=== PATIENT | male | born 1985 | race Hispanic/Latino ===

== ENCOUNTER → 2024-03-13 10:35 | Outpatient (CLI) | payer OTHER, SELFPAY ==
--- NOTE | 2024-03-13 10:38 | DI.MRI.S_ITS ---
PROCEDURE: MR SHOULDER RT WO CON INDICATIONS: Pain in right shoulder TECHNIQUE: Noncontrast oblique coronal T2 fast spin echo with fat saturation, oblique sagittal T1 spin echo and T2 fast spin echo with fat saturation, axial T1 spin echo and T2 fast spin echo with fat saturation through the shoulder. COMPARISON: [facility] Outside Film, CR, XR SHOULDER 2+ VIEWS RIGHT, 11/05/2023, 11:56. FINDINGS: Image quality: Excellent. Rotator cuff: There is likely full-thickness tearing of the supraspinatus tendon at the anterior insertion measuring 7 mm in anterior-posterior dimension without significant retraction of tendon fibers. Low-grade partial intrasubstance tearing is seen at the posterior supraspinatus and anterior infraspinatus tendon. Teres minor tendon is intact. Focal low-grade partial intrasubstance tearing of the subscapularis tendon at the distal insertion. There is no significant rotator cuff muscle atrophy. Bones and bursae: No acute trabecular bone injury or fracture. No focal glenohumeral cartilage defect is seen at. Beva-ao-wliijklj degenerative changes are seen in the acromioclavicular joint with mild subchondral edema. Small amount of fluid in the subacromial/subdeltoid bursa likely communicates with the glenohumeral joint fluid. Capsule and soft tissues: No displaced labral tear is seen. Proximal biceps long head tendon demonstrates mild tendinosis. Partial effacement of the fat signal in the rotator interval. Anterior band of the inferior glenohumeral ligament is borderline in thickness. IMPRESSION: 1. Focal full-thickness tearing of the supraspinatus tendon at the anterior insertion measuring 7 mm in anterior-posterior dimension without significant tendon retraction. There is low-grade partial intrasubstance tearing of the adjacent posterior supraspinatus tendon and anterior infraspinatus tendon. 2. Small focal low-grade partial intrasubstance tearing at the superior insertion of the subscapularis tendon. 3. Mild proximal biceps long head tendinosis. 4. No displaced labral tear. 5. Mild to moderate acromioclavicular joint osteoarthrosis. Mild edema in the distal clavicle is likely related to degenerative subchondral edema although an osseous contusion or chronic repetitive stress could produce similar findings. 6. Small subacromial/subdeltoid bursal effusion communicates with the glenohumeral joint space. Approved by: Robe Amos M.D. on 03/13/2024 at 12:30
== END ==
PROVIDERS: PCP Nurse Practitioner Family; Referring Provider Nurse Practitioner Family; Visit Provider Nurse Practitioner Family
DX: M75.121 Complete rotator cuff tear or rupture of right shoulder, not specified as traumatic (principal); M19.011 Primary osteoarthritis, right shoulder; M25.411 Effusion, right shoulder; M25.511 Pain in right shoulder
CPT/HCPCS: 73221

== ENCOUNTER 2024-05-22 11:01 | Day surgery (SDC) | payer OTHER, SELFPAY ==
[2024-05-20 14:58] VITALS: BMI 39.1
[2024-05-22] VITALS (8 sets, daily range): BP systolic 112–137; BP diastolic 75–89; PULSE 73–86; RESP 13–24; TEMP 36.1–36.9; O2SAT 92–97; BMI 39.1
[2024-05-22] MEDS: LACTATED RINGERS 1,000 ML 42 ML IV ×2 (11:23→13:57)
[2024-05-22] MEDS: ACETAMINOPHEN 325 MG TABLET 975 MG PO (11:24)
--- NOTE | 2024-05-22 12:34 | PM.PREOP ---
Pre-operative Note Interval Note History & Physical reviewed/Exam performed by Physician: Yes Changes to H&P: No
[2024-05-22] MEDS: CEFAZOLIN 2 GM/100 ML PREMIX 100 ML IV (13:00)
[2024-05-22] MEDS: BUPIVACAINE 0.5% (PF) 30 ML, EPINEPHrine 0.15 MG INJ (13:10)
--- NOTE | 2024-05-22 13:19 | SUR.OPER ---
Lateral on padded OR bed with craig bag positioner, head on pillow, gel axillary roll in place, bottom leg bent with gel pad under knee to foot, upper leg straight and supported with pillows. Operative arm secured in shoulder positioning suspension device. non-operative arm secured on padded arm board. Safety belt at hip, tape over blanket securing lower legs.
[2024-05-22] MEDS: LIDOCAINE 1% 20 ML INJ (14:11)
--- NOTE | 2024-05-22 14:18 | P.OP_ITS ---
Operative Date/Time/Diagnoses Date of procedure: 05/22/24 Time of procedure: 13:00 Pre-op diagnosis: Right supraspinatus tear Post-op diagnosis: same Procedure & Clinicians Procedure: Right arthroscopic subacromial decompression with rotator cuff repair as well as debridement CPT code 95542, 70230, 37432 Same procedure as scheduled: Yes Indications: Full-thickness tear involving the right supraspinatus Surgeon: Naseem Gomez Appraisal Technician: Petra Guevara Anesthesia Type: General and Peripheral nerve block Operative Notes Findings: 1 cm tear involving the right supraspinatus with minimal retraction. Partial tearing to the infraspinatus both articular and bursal but relatively mild. No sign of any significant arthritic changes to the glenohumeral joint no sign of any proximal biceps pathology. Significant synovitis and bursitis in the subacromial and subdeltoid space. Estimated Blood Loss (mL): 5 Procedure in detail: On date of service, Patient was met in the holding area. The operative site was signed and witnessed by the OR staff. The surgeries once again discussed with the patient and any remaining questions they had were answered fully. Patient was taken back to the operating theater and placed on the operating table in a supine position. Great care was taken to ensure that all bony prominences were properly padded. Patient was then placed into the beach chair position. The head and neck were properly positioned and secured. A timeout was performed verifying patient's name, procedure, and the operative site. The right upper extremity was then prepped and draped in the normal sterile fashion. Previously, the bony anatomy and portal sites were marked out as well as injected with Marcaine with epinephrine. An 11 blade was used to make an incision in the posterior aspect of the shoulder. The camera was placed, and a diagnostic shoulder scope was performed. Findings listed above. Next under dir ect visualization, a anterior portal was made. Shaver was brought in and extensive debridement of the degenerative changes to the labrum was performed. Shaver was also used to debride the synovitis in the glenohumeral joint as well as the mild partial tearing to the articular surface of the supraspinatus and infraspinatus as well as subscapularis. Next the camera was placed into the subacromial space. A lateral portal was obtained under direct visualization. A combination of the shaver and vapor wand, a debridement of the inflamed tissue as well as inflamed bursa was performed. The lateral gutter was also cleaned out. There was a significant amount of bursitis and synovitis in both the subacromial and subdeltoid space. After this was all cleaned out, This gave us good visualization of the bursal aspect of the rotator cuff as well as the acromial arch. There was an obvious impingement lesion in the acromial arch. Next we turned our attention to the subacromial decompression. Next, a bur was then used to do a subacromial decompression. This allowed us to convert the acromion to a type I acromial. This also allowed us to shave down the bony lesion in the acromial space. The rasp was placed into the lateral portal as well as the anterior portal in order to do a complete subacromial decompression. We then turned our attention to the rotator cuff tear. Patient had a full- thickness tear involving the right supraspinatus with minimal retraction. Due to the acute nature of the tear the cuff was still very mobile and had not scarred in at all. We could very easily pull it back to the rotator cuff footprint. Using the bur, the rotator cuff footprint was decorticated down to bleeding bone. Next, 2 medial anchors were placed. One anteriorly 1 posteriorly. Each anchor had 2 strands of fiber tape for a speed bridge repair. The sutures from the posterior anchor were passed through the posterior aspect of the infraspinatus. Then the sutures from the anterior anchor was passed through the anterior aspect of the supraspinatus. When pulling on the sutures we were able to reduce the supraspinatus to their respective footprints. Next, a punch was used to make a hole in the bone for the 2 medial anchors. This was done also anteriorly and posteriorly. A single suture from the anterior medial anchor and a single suture from the posterior medial anchor were placed into the anterior lateral anchor allowing us to tenodesis the rotator cuff across the rotator cuff footprint for the supraspinatus. This was then repeated with the remaining suture both anteriorly and posteriorly. And these 2 sutures were placed into the posterior medial anchor and tenodesis posteriorly providing a crisscross pattern providing a secure repair of the supraspinatus. Back After the repair there was good coverage of the entire humeral head and a very secure repair of the rotator cuff. Shoulder was taken through range of motion and there was no sign of any other tearing. No sign of any impingement lesions. Camera and cannulas were removed. Portal sites were closed. Patient's shoulder was cleaned, dried, and dressed. Patient was extubated and taken to [facility] PACU in stable condition. The assistance of a skilled ophthalmology surgical technician was necessary during this procedure for positioning of the arm as well as helping with positioning of the camera and our instruments during repair of the rotator cuff. The case would have been much longer and more difficult had an nutrition assistant not been available. The services of the ophthalmology surgical technician were necessary for this case. Complications: none Post-operative Condition: stable Disposition: PACU Plan for aftercare: Patient will follow our postoperative protocol for rotator cuff repair.
[2024-05-22] MEDS: OXYCODONE IR 5 MG TABLET PO (14:58)
--- NOTE | 2024-05-22 15:28 | PM.HP.1 ---
History of Present Illness History of Present Illness Date Patient Seen: 05/22/24 Time Patient Seen: 15:28 Chief complaint: Right shoulder Narrative: Patient with a previous history of a right middle finger distal amputation. Since that procedure he is had a recurrent regrowth of remaining nail that has continued to cause him pain and discomfort. Due to this fact, patient is interested in having the nailbed ablated to keep any remaining nail from growing. [facility] Medical History Headache Surgical History Hx of LAS Social History household members: friend(s) Smoking Status: Never smoker alcohol intake: never Meds Home Medications and Allergies Home Medications Medication Instructions Recorded Confirmed Type hydroxyzine pamoate 25 mg capsule 25 mg PO TID-QID PRN spasms #60 05/22/24 Rx (Vistaril) caps oxycodone-acetaminophen 5 mg-325 2 tab PO Q4-6H PRN pain #60 tabs 05/22/24 Rx mg tablet (Percocet) Allergies Allergy/AdvReac Type Severity Reaction Status Date / Time No Known Drug Allergies Allergy Verified 05/22/24 11:08 Exam Vital Signs (past 8 hours): - 05/22/24 11:39 05/22/24 14:28 05/22/24 14:33 Temperature 98.4 F 97 F L Pulse Rate 82 79 73 Respiratory Rate 18 24 22 Blood Pressure 115/79 137/78 123/78 Pulse Oximetry 97 92 95 Oxygen Delivery Method Room Air Simple Mask Simple Mask Oxygen Flow Rate 05/22/24 14:38 05/22/24 14:45 05/22/24 14:50 Temperature Pulse Rate 74 86 81 Respiratory Rate 17 18 13 Blood Pressure 132/83 121/89 127/76 Pulse Oximetry 95 92 93 Oxygen Delivery Method Simple Mask Nasal Cannula Room Air Oxygen Flow Rate 2 05/22/24 14:58 05/22/24 15:11 Temperature Pulse Rate 81 79 Respiratory Rate 15 16 Blood Pressure 131/76 112/75 Pulse Oximetry 94 95 Oxygen Delivery Method Room Air Room Air Oxygen Flow Rate Oxygen Delivery Method Room Air Oxygen Flow Rate 2 Narrative Exam Narrative: On physical exam no swelling or deformities. Patient has signs of a amputation to the distal tip of his right middle finger. On palpation 1 can feel a small piece of remaining nail growing through the ulnar border of the finger. Not causing any infectious process. But is tender to palpation. Assessment & Plan Assessment & Plan narrative: Patient with a persistent nail deformity after an amputation to the right middle finger that is causing him pain and dysfunction. Due to this fact, patient is interested in having the nailbed ablated. The risk, benefits, alternatives, possible complications, operative course, and postop outcomes were discussed. Complications including but not limiting to bleeding, infection, fracture, nerve injury, continued pain postoperatively or instability postoperatively were discussed in detail. Medical complications including but not limited to deep venous thrombosis event, anesthesia complications with excessive bleeding, vascular events or cardiac events and other possible complications were discussed in detail. Need for postoperative rehabilitation and anticipated hospital stay and clinical course were discussed in detail. Patient acknowledges understanding and elects to proceed with surgery. Time-Based Coding :: [TOTAL MINUTES] spent with patient and on the chart (including review of chart, obtaining history, exam, reviewing outside data, placing orders, documenting exam and treatment plan, and counseling patient) on [DATE].
--- NOTE | 2024-05-22 15:30 | PM.PREOP ---
Pre-operative Note Interval Note History & Physical reviewed/Exam performed by Physician: Yes Changes to H&P: No
--- NOTE | 2024-05-22 15:31 | P.HP_ITS ---
History of Present Illness History of Present Illness Chief complaint: Right shoulder ON LICENSE OF [facility] Medical History Headache Surgical History Hx of LASIK Social History household members: friend(s) Smoking Status: Never smoker alcohol intake: never Meds Home Medications and Allergies Home Medications Medication Instructions Recorded Confirmed Type hydroxyzine pamoate 25 mg capsule 25 mg PO TID-QID PRN spasms #60 05/22/24 Rx (Vistaril) caps oxycodone-acetaminophen 5 mg-325 2 tab PO Q4-6H PRN pain #60 tabs 05/22/24 Rx mg tablet (Percocet) Allergies Allergy/AdvReac Type Severity Reaction Status Date / Time No Known Drug Allergies Allergy Verified 05/22/24 11:08 Exam Vital Signs (past 8 hours): - 05/22/24 11:39 05/22/24 14:28 05/22/24 14:33 Temperature 98.4 F 97 F L Pulse Rate 82 79 73 Respiratory Rate 18 24 22 Blood Pressure 115/79 137/78 123/78 Pulse Oximetry 97 92 95 Oxygen Delivery Method Room Air Simple Mask Simple Mask Oxygen Flow Rate 05/22/24 14:38 05/22/24 14:45 05/22/24 14:50 Temperature Pulse Rate 74 86 81 Respiratory Rate 17 18 13 Blood Pressure 132/83 121/89 127/76 Pulse Oximetry 95 92 93 Oxygen Delivery Method Simple Mask Nasal Cannula Room Air Oxygen Flow Rate 2 05/22/24 14:58 05/22/24 15:11 Temperature Pulse Rate 81 79 Respiratory Rate 15 16 Blood Pressure 131/76 112/75 Pulse Oximetry 94 95 Oxygen Delivery Method Room Air Room Air Oxygen Flow Rate Oxygen Delivery Method Room Air Oxygen Flow Rate 2 Assessment & Plan Time-Based Coding :: [TOTAL MINUTES] spent with patient and on the chart (including review of chart, obtaining history, exam, reviewing outside data, placing orders, documenting exam and treatment plan, and counseling patient) on [DATE].
== END 2024-05-22 15:28 | disposition home or self-care (01) ==
PROVIDERS: PCP Nurse Practitioner Family; Referring Provider Nurse Practitioner Family; Visit Provider Orthopaedic Surgery
PROC: (CPT 29805; principal; 2024-05-22 13:00)
DX: S46.811A Strain of other muscles, fascia and tendons at shoulder and upper arm level, right arm, initial encounter (principal); M75.41 Impingement syndrome of right shoulder
CPT/HCPCS: 29827; 29826; 29823; C9356; J0171; J0690; J1100; J1885; J2250; J2405; J2704; J3010

== ENCOUNTER 2025-06-17 06:01 | Day surgery (SDC) | payer OTHER, SELFPAY ==
[2025-06-11 14:10] VITALS: BMI 42.3
[2025-06-17] VITALS (9 sets, daily range): BP systolic 130–140; BP diastolic 62–99; PULSE 84–99; RESP 14–18; TEMP 36.1–36.4; O2SAT 94–99; BMI 43.4
--- NOTE | 2025-06-17 07:20 | PM.PREOP ---
Pre-operative Note COVID-19 COVID-19 status: Not tested Interval Note History & Physical reviewed/Exam performed by Physician: Yes Changes to H&P: No
[2025-06-17] MEDS: LACTATED RINGERS 1,000 ML 84 ML IV ×2 (07:28→09:59)
--- NOTE | 2025-06-17 08:34 | SUR.OPER ---
Beach chair with Ciara/Clif shoulder positioner. Lower body on padded OR bed. Head in foam padded head cradle, secured with straps. Non-operative arm secured <90 degrees abduction. Pillow under knees. Safety belt at thigh. Cloth tape over blanket over lower legs.
[2025-06-17] MEDS: SODIUM CHLORIDE IRRIG SOLUTION 3,000 ML, EPINEPHrine 3 MG IRR (09:16)
--- NOTE | 2025-06-17 10:29 | P.OP_ITS ---
Operative Date/Time/Diagnoses Date of procedure: 06/17/25 Time of procedure: 08:36 Pre-op diagnosis: right shoulder biceps tendinitis and subacromial impingement Post-op diagnosis: same Procedure & Clinicians Procedure: right shoulder arthroscopy with open subpectoral biceps tenodesis and subacromial debridement Same procedure(s) as scheduled: Yes Surgeon: Alma Rosa Goncalves Assisted?: Yes Senior Software Quality Engineer: Janette Carrillo Anesthesia Type: General Operative Notes Findings: SLAP tear and subacromial bursitis Closure Type: primary Applied: none Estimated Blood Loss (mL): 10 Blood products transfused: none Procedure in detail: Preoperative diagnosis: 1. R Biceps tendonitis 3.? R subacromial bursitis and loose anchor subcoracoid recess Postoperative diagnosis: 1. R shoulder subacromial bursitis 2.? Biceps tendinitis and Type II SLAP Procedure performed: 1. R shoulder arthroscopy with subacromial debridement 2. Open subpectoral biceps tenodesis Implants: 1. Arthrex proximal biceps button. The patient was met in the preoperative hold area the right upper extremity was signed as the correct extremity. The patient was taken back to the operating room. The patient was placed in the beach chair position. All bony prominences were padded. The patient was positioned in the beach chair ensuring his neck was in neutral alignment. The patient was prepped and draped in the standard sterile fashion. A time-out was performed confirming the correct patient, correct procedure, correct extremity, initials on the operative site and administration of IV antibiotics A standard posterolateral viewing portal was utilized. A diagnostic arthroscopy was performed. The patient had a type 2 slap tear. The rotator cuff tendon was intact.? The humeral head and glenoid cartilage was intact.? The biceps tendon was cut and the stump was debrided. After finishing the diagnostic arthroscopy I then performed the open subpectoral biceps tenodesis. A 3 cm incision was made just inferior to the Pec major in the axillary fold. Dissection was taken down through the subcutaneous tissues. The biceps tendon was identified and retrieved from the wound. An Arthrex cortical button was utilized fix the biceps tendon in place. ? A drill was utilized to make a new drill hole for the Arthrex button.? And this was placed without difficulty the biceps was tightened down to the bone reinforced the knots were placed. ?This maintained an excellent repair. I then placed the arthroscopic instruments in the subacromial space and the subacromial space was debrided. There was very thick bursitis that was debrided. The rotator cuff moved in continuity.? The rotator cuff repair was examined and found to be intact.? I looked for the loose anchor in the subcoracoid space and it was not visible. ??All as were copiously irrigated and the arthroscopy portals were closed with 3-0 nylon. The biceps tenodesis incision was closed with 2-0 Vicryl 3-0 Monocryl Steri-Strips.? A sterile dressing was applied of Xeroform, plain gauze, Medipore tape. At the end of the surgery a total of 30 cc of 0.25% Marcaine was placed into the incision sites. Patient was awoken and taken to the PACU in stable condition. AARON Carrillo assisted during the case.? Her role was vital for positioning, instrumentation, exposure and closure. Complications: none Post-operative Condition: stable Disposition: PACU
== END 2025-06-17 12:32 | disposition home or self-care (01) ==
PROVIDERS: Referring Provider Orthopaedic Surgery; Visit Provider Orthopaedic Surgery
PROC: (CPT 29805; principal; 2025-06-17 07:45)
DX: M75.21 Bicipital tendinitis, right shoulder (principal); M25.811 Other specified joint disorders, right shoulder; S43.431A Superior glenoid labrum lesion of right shoulder, initial encounter; M75.51 Bursitis of right shoulder
CPT/HCPCS: 23430; 29822; C1713; J0165; J0690; J1100; J1885; J2405; J2704; J3010